=== PATIENT | female | born 1990 | race American Indian/Alaskan Native ===

== ENCOUNTER 2020-07-06 10:43 | Emergency (ER) | payer SELFPAY ==
[2020-07-06 10:59] VITALS: BP 129/88
[2020-07-06] MEDS ORDERED: LIDOCAINE (1%) 10 MG/1 ML VIAL 20 ML MDV INFILTRATI ONE (11:02)
--- NOTE | 2020-07-06 11:51 | Emergency Department Report ---
ED General Adult HPI - General Chief complaint: Rectal Pain Stated complaint: HEALTH ISSUE Time Seen by Provider: 07/06/20 10:59 Source: patient Mode of arrival: Ambulatory Limitations: No Limitations - History of Present Illness Initial comments: 29-year-old -Marshall[place] female patient presents with complaints of painful hemorrhoid for the past few days. Patient states a history of hemorrhoids and that after scratching in her rectal area, her hemorrhoid became painful with possible purulent drainage. She denies any fever/chills/sweats, abdominal pain, or pain with defecation. She states a history of chronic intermittent constipation and straining. Last bowel movement was yesterday per patient. No hematochezia/melena per patient. She denies any past medical history. - Related Data Previous Rx's Medication Instructions Recorded Last Taken Type Nitrofurantoin [place]/M-Cryst 100 mg PO Q12HR #14 capsule 04/16/15 Unknown Rx [Macrobid CAP] medroxyPROGESTERone ACETATE 5 mg PO QDAY #5 tablet 04/16/15 Unknown Rx [Provera] Acetaminophen/Codeine [Tylenol 1 tab PO Q6H PRN #10 tab 07/06/20 Unknown Rx /Codeine # 3 tab] Clindamycin [Clindamycin CAP] 300 mg PO Q6H 10 Days #40 capsule 07/06/20 Unknown Rx Docusate Sodium [Colace] 100 mg PO BID PRN #20 capsule 07/06/20 Unknown Rx Ibuprofen [Motrin 800 MG tab] 800 mg PO Q8HR PRN #20 tablet 07/06/20 Unknown Rx Mupirocin [Bactroban 2% OINT] 1 applic TP TID 10 Days #1 tube 07/06/20 Unknown Rx Triamcinolone Acetonide 15 gm TP TID PRN 5 Days #1 07/06/20 Unknown Rx oint...g. Allergies Allergy/AdvReac Type Severity Reaction Status Date / Time No Known Allergies Allergy Verified 07/06/20 10:47 ED Review of Systems ROS: Stated complaint: HEALTH ISSUE Other details as noted in HPI Constitutional: denies: chills, diaphoresis, fever, malaise, weakness Respiratory: denies: cough, shortness of breath Gastrointestinal: denies: abdominal pain, nausea, vomiting, constipation, hematemesis, melena, hematochezia Genitourinary: denies: urgency, dysuria, frequency, hematuria, discharge, abnormal menses Musculoskeletal: denies: back pain Skin: denies: rash, change in color Hematological/Lymphatic: denies: swollen glands ED Past Medical Hx - Past Medical History Previous Medical History?: No - Surgical History Past Surgical History?: Yes Additional Surgical History: facial surgery - Social History Smoking Status: Current Every Day Smoker Substance Use Type: Alcohol, Marijuana - Medications Home Medications: Home Medications Medication Instructions Recorded Confirmed Last Taken Type Nitrofurantoin [place]/M-Cryst 100 mg PO Q12HR #14 capsule 04/16/15 Unknown Rx [Macrobid CAP] medroxyPROGESTERone ACETATE 5 mg PO QDAY #5 tablet 04/16/15 Unknown Rx [Provera] Acetaminophen/Codeine [Tylenol 1 tab PO Q6H PRN #10 tab 07/06/20 Unknown Rx /Codeine # 3 tab] Clindamycin [Clindamycin CAP] 300 mg PO Q6H 10 Days #40 capsule 07/06/20 Unknown Rx Docusate Sodium [Colace] 100 mg PO BID PRN #20 capsule 07/06/20 Unknown Rx Ibuprofen [Motrin 800 MG tab] 800 mg PO Q8HR PRN #20 tablet 07/06/20 Unknown Rx Mupirocin [Bactroban 2% OINT] 1 applic TP TID 10 Days #1 tube 07/06/20 Unknown Rx Triamcinolone Acetonide 15 gm TP TID PRN 5 Days #1 07/06/20 Unknown Rx oint...g. ED Physical Exam - General Limitations: No Limitations General appearance: alert, in no apparent distress - Head Head exam: Present: atraumatic, normocephalic - Eye Eye exam: Present: normal appearance - ENT ENT exam: Present: mucous membranes moist - Respiratory Respiratory exam: Present: normal lung sounds bilaterally. Absent: respiratory distress - Cardiovascular Cardiovascular Exam: Present: regular rate, normal rhythm - GI/Abdominal GI/Abdominal exam: Present: soft, normal bowel sounds. Absent: distended, tenderness, guarding, rebound, rigid - Rectal Rectal exam: Present: hemorrhoids (Infected external hemorrhoid noted at approximately 1200 above the anus with minimal purulent drainage noted and erythema; no surrounding induration) - Extremities Exam Extremities exam: Present: full ROM - Back Exam Back exam: Present: normal inspection - Neurological Exam Neurological exam: Present: alert, oriented X3 ED Course Vital Signs 07/06/20 07/06/20 10:51 12:21 Temperature 98.2 F Pulse Rate 62 Respiratory 18 18 Rate Blood Pressure 129/88 O2 Sat by Pulse 100 Oximetry - I & D Buttocks Type of Procedure: Simple Site: Anus Blade Size: 11 I & D Procedure: betadine prep Progress: 3 cc of lidocaine 1% without epi used. Minimal purulent drainage obtained. Minimal bleeding occurred. Patient tolerated procedure well without any immediate complications. ED Medical Decision Making - Medical Decision Making 29-year-old -M[place] female patient presents with complaints of painful hemorrhoid for the past few days. Patient states a history of hemorrhoids and that after scratching in her rectal area, her hemorrhoid became painful with possible purulent drainage. She denies any fever/chills/sweats, abdominal pain, or pain with defecation. She states a history of chronic intermittent constipation and straining. Last bowel movement was yesterday per patient. No hematochezia/melena per patient. She denies any past medical history. All purulent drainage obtained from incision and drainage. Will treat with topical mupirocin and oral clindamycin. Discussed need for follow-up with GI PCP. Discussed wound care and signs and symptoms that should prompt immediate return to emergency department in detail with patient verbalized understanding. Critical care attestation.: If time is entered above; I have spent that time in minutes in the direct care of this critically ill patient, excluding procedure time. ED Disposition Clinical Impression: External hemorrhoids with complication Disposition: DC-01 TO HOME OR SELFCARE Is pt being admited?: No Condition: Stable Instructions: Hemorrhoids, Anorectal Abscess Prescriptions: Mupirocin [Bactroban 2% OINT] 1 applic TP TID 10 Days #1 tube Clindamycin [Clindamycin CAP] 300 mg PO Q6H 10 Days #40 capsule Docusate Sodium [Colace] 100 mg PO BID PRN #20 capsule PRN Reason: Constipation Ibuprofen [Motrin 800 MG tab] 800 mg PO Q8HR PRN #20 tablet PRN Reason: Pain, Moderate (4-6) Triamcinolone Acetonide 15 gm TP TID PRN 5 Days #1 oint...g. PRN Reason: Itching Acetaminophen/Codeine [Tylenol /Codeine # 3 tab] 1 tab PO Q6H PRN #10 tab PRN Reason: Pain , Severe (7-10) Referrals: [facility] [Provider Group] - 2-3 Days Forms: Work/School Release Form(ED)
[2020-07-06] MEDS ORDERED: oxyCODONE /ACETAMINOPHEN 5-325MG TAB PO ONE (11:52)
== END 2020-07-06 12:24 | disposition home or self-care (01) ==
LOC: ED 10:43
DX: K64.4 Residual hemorrhoidal skin tags (principal); F17.200 Nicotine dependence, unspecified, uncomplicated; F12.10 Cannabis abuse, uncomplicated; Z79.899 Other long term (current) drug therapy
CPT/HCPCS: 99282

== ENCOUNTER 2020-12-21 00:43 | Emergency (ER) | payer SELFPAY ==
[2020-12-21 00:52] VITALS: BP 127/60
[2020-12-21 01:23] LABS: Basophils % (Auto) 0.5 % (0.0-1.8); Eosinophils # (Auto) 0.1 K/mm3 (0.0-0.4); Eosinophils % (Auto) 2.4 % (0.0-4.3); Hematocrit 28.8 % (30.3-42.9); Hemoglobin 9.6 gm/dl (10.1-14.3); Lymphocytes # (Auto) 0.8 K/mm3 (1.2-5.4); Lymphocytes % (Auto) 18.7 % (13.4-35.0); Mean Corpuscular HGB Conc 33 % (30-34); Mean Corpuscular Volume 88 fl (79-97); Monocytes # (Auto) 0.5 K/mm3 (0.0-0.8); Monocytes % (Auto) 10.9 % (0.0-7.3); Platelet Count 307 K/mm3 (140-440); Red Blood Count 3.26 M/mm3 (3.65-5.03); Red Cell Distribution Width 18.8 % (13.2-15.2)
[2020-12-21 01:49] LABS: Alanine Aminotransferase 7 units/L (7-56); Albumin 3.9 g/dL (3.9-5); Blood Urea Nitrogen 15 mg/dL (7-17); Hemolysis Index 1
[2020-12-21 01:50] LABS: BUN/Creatinine Ratio 21
[2020-12-21] MEDS ORDERED: ONDANSETRON 4 MG/2 ML INJ IV ONE (02:14)
[2020-12-21] MEDS ORDERED: MORPHINE 4 MG/1 ML INJ IV ONE (02:14)
[2020-12-21 02:17] LABS: Bacteria,Urine 3+ /HPF (Negative); Bilirubin,Urine NEG (Negative); Blood,Urine LG (Negative); Color,Urine Yellow (Yellow); Mucus,Urine 1+ /HPF
[2020-12-21 02:18] LABS: RBC,Urine > 182.0 /HPF (0.0-6.0)
--- NOTE | 2020-12-21 03:13 | Emergency Department Report ---
ED Abdominal Pain HPI - General Chief Complaint: Vaginal Bleeding Stated Complaint: ABD PAIN Source: patient Mode of arrival: Ambulatory Limitations: No Limitations - History of Present Illness Initial Comments: Patient is a A0 30-year-old -B[place] female with a history of dysmenorrhea who presents to the ED with acute onset persistent severe pelvic pain with vaginal bleeding due to her menstrual cycle for the last 2 days. Patient states that she usually experiences dysmenorrhea but that the current symptoms are more severe and she suspects something may be wrong. Patient denies nausea, vomiting, diarrhea, dysuria, urinary frequency and urgency, back pain, fever, chills, cough, chest pain, shortness of breath, change in vision or headache. MD Complaint: abdominal pain (Pelvic pain) -: Sudden, days(s) (2) Location: suprapubic Radiation: suprapubic Migration to: no migration Severity scale (0 -10): 7 Quality: cramping, sharp Consistency: constant Improves With: nothing Worsens With: movement Context: other (Currently on menstrual cycle) Associated Symptoms: denies other symptoms, constipation, anorexia. denies: nausea, vomiting, diarrhea, fever, chills, dysuria, hematemesis, hematochezia, melena, syncope Treatments Prior to Arrival: NSAIDs - Related Data LMP Date: 12/18/20 Previous Rx's Medication Instructions Recorded Last Taken Type Nitrofurantoin [place]/M-Cryst 100 mg PO Q12HR #14 capsule 04/16/15 Unknown Rx [Macrobid CAP] medroxyPROGESTERone ACETATE 5 mg PO QDAY #5 tablet 04/16/15 Unknown Rx [Provera] Acetaminophen/Codeine [Tylenol 1 tab PO Q6H PRN #10 tab 07/06/20 Unknown Rx /Codeine # 3 tab] Clindamycin [Clindamycin CAP] 300 mg PO Q6H 10 Days #40 capsule 07/06/20 Unknown Rx Docusate Sodium [Colace] 100 mg PO BID PRN #20 capsule 07/06/20 Unknown Rx Ibuprofen [Motrin 800 MG tab] 800 mg PO Q8HR PRN #20 tablet 07/06/20 Unknown Rx Mupirocin [Bactroban 2% OINT] 1 applic TP TID 10 Days #1 tube 07/06/20 Unknown Rx Triamcinolone Acetonide 15 gm TP TID PRN 5 Days #1 07/06/20 Unknown Rx oint...g. Docusate Sodium [Dok] 100 mg PO DAILY #30 tablet 12/21/20 Unknown Rx Ibuprofen [Motrin] 600 mg PO Q8H PRN #30 tablet 12/21/20 Unknown Rx Ondansetron [Zofran Odt] 4 mg PO Q8HR PRN #15 tab.rapdis 12/21/20 Unknown Rx Sulfamethoxazole/Trimethoprim 1 each PO Q12H #20 tablet 12/21/20 Unknown Rx [Bactrim DS TAB] Allergies Allergy/AdvReac Type Severity Reaction Status Date / Time No Known Allergies Allergy Verified 07/06/20 10:47 ED Review of Systems ROS: Stated complaint: ABD PAIN Other details as noted in HPI Constitutional: denies: chills, fever Eyes: denies: eye pain, eye discharge, vision change ENT: denies: ear pain, throat pain Respiratory: denies: cough, shortness of breath, wheezing Cardiovascular: denies: chest pain, palpitations Endocrine: no symptoms reported Gastrointestinal: abdominal pain (Suprapubic pain). denies: nausea, diarrhea Genitourinary: abnormal menses (Vaginal bleeding due to menstrual cycle). denies: urgency, dysuria, discharge Musculoskeletal: denies: back pain, joint swelling, arthralgia Skin: denies: rash, lesions Neurological: denies: headache, weakness, paresthesias Psychiatric: denies: anxiety, depression Hematological/Lymphatic: denies: easy bleeding, easy bruising ED Past Medical Hx - Past Medical History Previous Medical History?: No - Surgical History Past Surgical History?: No Additional Surgical History: facial surgery - Social History Smoking Status: Never Smoker Substance Use Type: None - Medications Home Medications: Home Medications Medication Instructions Recorded Confirmed Last Taken Type Nitrofurantoin [place]/M-Cryst 100 mg PO Q12HR #14 capsule 04/16/15 Unknown Rx [Macrobid CAP] medroxyPROGESTERone ACETATE 5 mg PO QDAY #5 tablet 04/16/15 Unknown Rx [Provera] Acetaminophen/Codeine [Tylenol 1 tab PO Q6H PRN #10 tab 07/06/20 Unknown Rx /Codeine # 3 tab] Clindamycin [Clindamycin CAP] 300 mg PO Q6H 10 Days #40 capsule 07/06/20 Unknown Rx Docusate Sodium [Colace] 100 mg PO BID PRN #20 capsule 07/06/20 Unknown Rx Ibuprofen [Motrin 800 MG tab] 800 mg PO Q8HR PRN #20 tablet 07/06/20 Unknown Rx Mupirocin [Bactroban 2% OINT] 1 applic TP TID 10 Days #1 tube 07/06/20 Unknown Rx Triamcinolone Acetonide 15 gm TP TID PRN 5 Days #1 07/06/20 Unknown Rx oint...g. Docusate Sodium [Dok] 100 mg PO DAILY #30 tablet 12/21/20 Unknown Rx Ibuprofen [Motrin] 600 mg PO Q8H PRN #30 tablet 12/21/20 Unknown Rx Ondansetron [Zofran Odt] 4 mg PO Q8HR PRN #15 tab.rapdis 12/21/20 Unknown Rx Sulfamethoxazole/Trimethoprim 1 each PO Q12H #20 tablet 12/21/20 Unknown Rx [Bactrim DS TAB] ED Physical Exam - General Limitations: No Limitations General appearance: alert, in no apparent distress - Head Head exam: Present: atraumatic, normocephalic, normal inspection - Eye Eye exam: Present: normal appearance, PERRL, EOMI Pupils: Present: normal accommodation - ENT ENT exam: Present: normal exam, normal orophraynx, mucous membranes moist, TM's normal bilaterally, normal external ear exam - Neck Neck exam: Present: normal inspection, full ROM - Respiratory Respiratory exam: Present: normal lung sounds bilaterally. Absent: respiratory distress, wheezes, rales, rhonchi, chest wall tenderness, accessory muscle use, decreased breath sounds, prolonged expiratory - Cardiovascular Cardiovascular Exam: Present: regular rate, normal rhythm, normal heart sounds. Absent: systolic murmur, diastolic murmur, rubs, gallop - GI/Abdominal GI/Abdominal exam: Present: soft, tenderness (Palpable suprapubic tenderness), normal bowel sounds. Absent: guarding, rebound, hyperactive bowel sounds, hypoactive bowel sounds, organomegaly, pulsatile mass - Bi-manual exam: Present: other (Pelvic exam deferred at this time) - Extremities Exam Extremities exam: Present: normal inspection, full ROM, normal capillary refill - Back Exam Back exam: Present: normal inspection, full ROM. Absent: tenderness, CVA tenderness (R), CVA tenderness (L), muscle spasm, paraspinal tenderness, vertebral tenderness - Neurological Exam Neurological exam: Present: alert, oriented X3, CN II-XII intact, normal gait, reflexes normal - Psychiatric Psychiatric exam: Present: normal affect, normal mood - Skin Skin exam: Present: warm, dry, intact, normal color. Absent: rash ED Course Vital Signs 12/21/20 00:50 Temperature 98.3 F Pulse Rate 91 H Respiratory 16 Rate Blood Pressure 127/60 O2 Sat by Pulse 100 Oximetry ED Medical Decision Making - Lab Data Result diagrams: 12/21/20 01:04 12/21/20 01:04 - Radiology Data Radiology results: report reviewed, image reviewed [facility] [address] [place] [address] XRay Report Signed Patient: JANNIE FRAUSTO MR#: [id number] : 1990 Acct:[id number] Age/Sex: 30 / F ADM Date: 12/21/20 Loc: ED Attending Dr: Ordering Physician: LOLLY FERNÁNDEZ Date of Service: 12/21/20 Procedure(s): XR abdomen 1V ap Accession Number(s): [id number] cc: LOLLY FERNÁNDEZ Fluoro Time In Minutes: ABDOMEN 1 VIEW(S) INDICATION / CLINICAL INFORMATION: LOWER ABDOMINAL PAIN. R/O CONSTIPATION. COMPARISON: None available. FINDINGS: TUBES / LINES: None. BOWEL GAS PATTERN: No significant abnormality. FREE AIR / EXTRALUMINAL GAS: None seen. ADDITIONAL FINDINGS: No significant additional findings. IMPRESSION: 1. No significant abnormality. Signer Name: Matias Moody MD Signed: 12/21/2020 3:35 AM Workstation Name: [id number] Transcribed By: Dictated By: Matias Moody MD Electronically Authenticated By: Matias Moody MD Signed Date/Time: 12/21/20334 DD/ 4 TD/TT: [facility] [address] [place] [address] Ultrasound Report Signed Patient: JANNIE FRAUSTO MR#: [id number] : 1990 Acct:[id number] Age/Sex: 30 / F ADM Date: 12/21/20 Loc: ED Attending Dr: Ordering Physician: LOLLY FERNÁNDEZ Date of Service: 12/21/20 Procedure(s): US pelvic complete Accession Number(s): [id number] cc: LOLLY FERNÁNDEZ Pelvic ultrasound with Doppler INDICATION: Pelvic pain FINDINGS: Uterus measures 8 x 4 x 5 cm. Endometrial thickness is normal at 3 mm. The left ovary was poorly identified from overlying bowel gas but the right ovary was about normal in size. There is a 1.3 cm minimally complex right ovarian cyst. Normal Doppler flow to both ovaries present. No significant free pelvic fluid IMPRESSION: Small right ovarian cyst, as above. Signer Name: Matias Moody MD Signed: 12/21/2020 3:37 AM Workstation Name: [id number] Transcribed By: Dictated By: Matias Moody MD Electronically Authenticated By: Matias Moody MD Signed Date/Time: 12/21/20336 DD/ 5 TD/TT: - Medical Decision Making This is a A0 30-year-old -B[place] female with a history of dysmenorrhea who presents to the ED with acute onset persistent severe pelvic pain with vaginal bleeding due to her menstrual cycle for the last 2 days. Patient states that she usually experiences dysmenorrhea but that the current symptoms are more severe and she suspects something may be wrong. In the ED, patient is alert and oriented x3 and is not in any distress. Patient however appears to be in pain. Lab test results were reviewed and are all nonactionable including serum hCG test. The urinalysis showed significant urinary tract infection. Patient was treated for pain in the ED and also given antiemetics as well as Rocephin 1 g IV x1 for suspected acute urinary tract infection abdomen. The KUB x-ray showed nonspecific gas patterns with no acute abnormalities. The pelvic ultrasound showed right ovarian cyst. On reevaluation, patient's pain is well controlled medications. Patient will discharge home on pain medications and advised to follow-up with her primary care physician in 5 to 7 days for reevaluation. Patient is advised return to the ED immediately if symptoms get worse. - Differential Diagnosis Dysmenorrhea; constipation; UTI; ovarian cyst; ; PID Critical care attestation.: If time is entered above; I have spent that time in minutes in the direct care of this critically ill patient, excluding procedure time. ED Disposition Clinical Impression: Severe dysmenorrhea, Acute urinary tract infection, Cyst of right ovary Disposition: - TO HOME OR SELFCARE Is pt being admited?: No Does the pt Need Aspirin: No Condition: Stable Instructions: Dysmenorrhea, [id number], Urinary Tract Infection, Adult, Eas y-to-Read, Ovarian Cyst, [id number] Additional Instructions: All lab test results were reviewed and are all nonactionable except for urinalysis that showed significant urinary tract infection. The abdomen KUB x- ray showed nonspecific gas patterns with no other acute abnormalities. Pelvic ultrasound showed right ovarian cyst. Therefore take medication with food, drink plenty of fluids and follow-up with your primary care physician or [facility] physician in 7 to 10 days for reevaluation. Return to the ED immediately if symptoms get worse. Prescriptions: Sulfamethoxazole/Trimethoprim [Bactrim DS TAB] 1 each PO Q12H #20 tablet Docusate Sodium [Dok] 100 mg PO DAILY #30 tablet Ibuprofen [Motrin] 600 mg PO Q8H PRN #30 tablet PRN Reason: Pain Ondansetron [Zofran Odt] 4 mg PO Q8HR PRN #15 tab.rapdis PRN Reason: Nausea Referrals: [facility] [Provider Group] - 7-10 days Forms: Work/School Release Form(ED) Time of Disposition: 03:14 Print Language: FRISIAN
--- NOTE | 2020-12-21 03:40 | XRay Report ---
ABDOMEN 1 VIEW(S) INDICATION / CLINICAL INFORMATION: LOWER ABDOMINAL PAIN. R/O CONSTIPATION. COMPARISON: None available. FINDINGS: TUBES / LINES: None. BOWEL GAS PATTERN: No significant abnormality. FREE AIR / EXTRALUMINAL GAS: None seen. ADDITIONAL FINDINGS: No significant additional findings. IMPRESSION: 1. No significant abnormality. Signer Name: Matias Moody MD Signed: 12/21/2020 3:35 AM Workstation Name: [id number]
--- NOTE | 2020-12-21 03:41 | Ultrasound Report ---
Pelvic ultrasound with Doppler INDICATION: Pelvic pain FINDINGS: Uterus measures 8 x 4 x 5 cm. Endometrial thickness is normal at 3 mm. The left ovary was p oorly identified from overlying bowel gas but the right ovary was about normal in size. There is a 1. 3 cm minimally complex right ovarian cyst. Normal Doppler flow to both ovaries present. No significan t free pelvic fluid IMPRESSION: Small right ovarian cyst, as above. Signer Name: Matias Moody MD Signed: 12/21/2020 3:37 AM Workstation Name: [id number]
[2020-12-21] MEDS ORDERED: cefTRIAXone/NS 1 GM/50 ML 1 GM/50 ML BAG IV ONE (03:45)
== END 2020-12-21 05:00 | disposition home or self-care (01) ==
LOC: ED 00:43
DX: N94.6 Dysmenorrhea, unspecified (principal); N39.0 Urinary tract infection, site not specified; N83.201 Unspecified ovarian cyst, right side; Z79.899 Other long term (current) drug therapy; Z98.890 Other specified postprocedural states
CPT/HCPCS: 36415; 74018; 76856; 80053; 81001; 84703; 85025; 96365; 96375; 99284; J0696; J2270; J2405